=== PATIENT | male | born 1990 | race Caucasian/White ===

== ENCOUNTER 2021-04-05 15:49 | Emergency (ER) | payer SELFPAY ==
[~2021-04-05] VITALS: Ht 180.3 cm; Wt 104.3 kg
[2021-04-05] MEDS ORDERED: DEXAMETHASONE SOD PHOS INJ 4 MG/ML SDV IM ONE (16:30)
[2021-04-05] MEDS ORDERED: DEXAMETHASONE SOD PHOS INJ 4 MG/ML SDV ONE (16:37)
[2021-04-05] MEDS ORDERED: PREDNISONE20 MG PO (16:39)
[2021-04-05] MEDS ORDERED: HYDROXYZINE HCL25 MG PO (16:40)
== END 2021-04-05 16:51 | disposition home or self-care (01) ==
LOC: FSED 16:30
DX: L30.9 Dermatitis, unspecified (principal); L29.9 Pruritus, unspecified; F17.210 Nicotine dependence, cigarettes, uncomplicated
CPT/HCPCS: 99283; J1100